=== PATIENT | male | born 1950 | race Two or more races ===

== ENCOUNTER → 2017-04-25 | Outpatient (CLI) | payer MEDICARE, MEDICAID ==
[~2017-04-25] MED LIST: IOHEXOL-300 100 ML BOTTLE ONE; SODIUM CHLORIDE 0.9% 10ML VIAL ONE
== END | disposition home or self-care (01) ==
LOC: NM 08:24
PROVIDERS: ATTEND Urology
DX: C61 Malignant neoplasm of prostate (principal); N40.0 Benign prostatic hyperplasia without lower urinary tract symptoms; Z98.1 Arthrodesis status
CPT/HCPCS: 71020; 72194; 78306; A9503

== ENCOUNTER → 2020-11-26 | Outpatient (CLI) | payer MEDICARE, OTHER ==
[~2020-11-26] MED LIST changes: +AMLO10TA80 PO; +APIX5TAB PO; +DIAZ5TAB MT; +DIGO125T80 PO; +DOXA2TAB2 PO; -IOHEXOL-300 100 ML BOTTLE ONE; +ISOS10TA2 PO; +METF500T3 PO; +NEBI5TAB3 PO; -SODIUM CHLORIDE 0.9% 10ML VIAL ONE; +TAMS-11 PO
[2020-11-26 17:19] LABS: BASOPHILS % 0.5 % (0.0-2.0); EOSINOPHILS % 1.1 % (0.0-5.0); HEMATOCRIT. 34.4 % (42.0-52.0); HEMOGLOBIN. 11.6 g/dL (14.0-18.0); MEAN CORPUSCULAR HEMOGLOBIN 27.9 pg (28.0-32.0); MEAN PLATELET VOLUME 7.8 fl (7.4-10.4); MONOCYTES % 10.4 % (2.0-8.0); PLATELET 262 x1000/uL (130-400); RED BLOOD CELL COUNT 4.15 mill/uL (4.7-6.1); RED CELL DISTRIBUTION WIDTH 14.4 % (11.6-14.6)
[2020-11-26 17:30] LABS: PARTIAL THROMBOPLASTIN TIME 28.6 sec (23.4-31.0); PROTHROMBIN TIME 11.1 sec (9.6-11.0)
== END | disposition home or self-care (01) ==
LOC: LAB 16:29
PROVIDERS: ATTEND Internal Medicine Clinical Cardiac Electrophysiology
DX: I11.9 Hypertensive heart disease without heart failure (principal); I48.3 Typical atrial flutter; I49.5 Sick sinus syndrome
CPT/HCPCS: 36415; 80048; 85025